=== PATIENT | male | born 1955 | race Caucasian/White ===

== ENCOUNTER → 2021-06-27 13:00 | Outpatient (CLI) | payer OTHER, SELFPAY ==
[2021-06-27] VITALS (8 sets, daily range): BP systolic 124–139; BP diastolic 72–86; PULSE 70–78; RESP 22; TEMP 37.2–37.9; O2SAT 92–94
--- NOTE | 2021-06-27 13:23 | PC.NURSE ---
1300-pt sitting in recliner. sipping on ice water. tolerated well. Black right eye. Per pt he passed out at work and fell and hit his eye. VSS.
--- NOTE | 2021-06-27 14:21 | PC.NURSE ---
1335-infusion complete. IV intact. Pt o2 drops to 90% while sleeping. Pt educated to seek help if worsening of conditions. 1350-pt sleeping comfortably. warm blankets applied. 1400-pt sipping on water. tolerated well. 8 oz drank. 1420-discharged education given to pt. [employer] fact sheet given to pt. VSS
== END | disposition home or self-care (01) ==
PROVIDERS: PCP Internal Medicine; Visit Provider Internal Medicine
DX: U07.1 COVID-19 (principal)
CPT/HCPCS: 96365